=== PATIENT | male | born 1960 | race Caucasian/White ===

== ENCOUNTER 2019-10-19 19:50 | Emergency (ER) | payer OTHER, SELFPAY ==
[2019-10-19 20:00] VITALS: BP 117/76; PULSE 91; RESP 18; TEMP 36.7; O2SAT 96; BMI 31.9
[2019-10-19] MEDS: BACITRACIN OINT 0.9 GM PCKT 1 APPLIC TOP (20:10)
[2019-10-19] MEDS: LIDOCAINE 2% W/EPI INJ 20 ML INJ (20:10)
--- NOTE | 2019-10-19 20:25 | ED_ITS ---
HPI - Animal Bite <SHEA Wolf - Last Filed: 10/19/19 20:48> General Chief Complaint: Animal Bite Stated Complaint: dog bite on his lip Time Seen by Provider: 10/19/19 19:55 Source: patient Mode of arrival: Ambulatory Limitations: no limitations History of Present Illness HPI narrative: 58-year-old male presents emergency department complaining of a dog bite to his face. [place] bit him in the face. He complains of a laceration to the left side of his lip. Patient states his last Tdap was 2 years ago. He declined rabies vaccinations at this time, dog has a known rabies vaccination status. Patient denies any numbness, tingling, eye injury, difficulty swallowing, difficulty speaking, fevers, chills, dizziness, nausea, vomiting, diarrhea, or other injuries. Related Data Previous Rx's Medication Instructions Recorded amoxicillin-pot clavulanate 1 tab PO BID 10 Days #20 tab 10/19/19 [Augmentin] Allergies Allergy/AdvReac Type Severity Reaction Status Date / Time No Known Drug Allergies Allergy Verified 10/19/19 20:07 Review of Systems <SHEA Wolf - Last Filed: 10/19/19 20:48> Review of Systems Narrative: REVIEW OF SYSTEMS: GENERAL: Denies fever or chills. HENT: Denies hitting head. EYE: Denies double vision or vision loss. CARDIOVASCULAR: Denies syncope. MUSCULOSKELETAL: Denies weakness, or deformities. INTEGUMENTARY: Complains of left-sided lip laceration, see HPI. NEURO: Denies numbness or tingling. Patient History <SHAE Wolf - Last Filed: 10/19/19 20:48> Medical History No significant medical problems (Acute) Social History Smoking Status: Current every day smoker Smoking Status: Current every day smoker alcohol intake frequency: a few times a week Substance Use Type: does not use Exam <SHEA Wolf - Last Filed: 10/19/19 20:48> Initial Vital Signs Initial Vital Signs: Vital Signs Temperature 98.1 F 10/19/19 20:00 Pulse Rate 91 H 10/19/19 20:00 Respiratory Rate 18 10/19/19 20:00 Blood Pressure 117/76 10/19/19 20:00 Pulse Oximetry 96 10/19/19 20:00 PHYSICAL EXAMINATION: GENERAL: Well groomed, alert, and cooperative. Answers questions promptly and appropriately. Vital signs noted. HENT: Normocephalic, atraumatic. RESPIRATORY: Normal respiratory rate, trachea midline, airway patent. No stridor, nasal flaring or accessory muscle use. MUSCULOSKELETAL: Normal gait and coordination. Equal tone and mass bilaterally. EXTREMITIES: CMS intact. Moves all extremities. SKIN: Warm, dry, soft, appropriate color for ethnicity. A 5 cm vertical laceration noted left side of upper lip, laceration goes directly through the vermilion border. Laceration is a single layer, does not extend buccal aspect of lip. Wound was irrigated extensively with normal saline, sutures applied, vermilion border edges were precisely approximated, bacitracin applied post sutures. Multiple superficial scratches noted to upper lip around no and on right-sided cheek, the superficial lacerations not suturable. NEURO: Alert and Oriented X 3. Good coordination. PSYCH: Appropriate affect and mood. <Dewayne Sandoval DO - Last Filed: 10/19/19 22:27> Initial Vital Signs Initial Vital Signs: Vital Signs Temperature 98.1 F 10/19/19 20:00 Pulse Rate 91 H 10/19/19 20:00 Respiratory Rate 18 10/19/19 20:00 Blood Pressure 117/76 10/19/19 20:00 Pulse Oximetry 96 10/19/19 20:00 Procedures <SHEA Wolf - Last Filed: 10/19/19 20:48> Laceration Repair Laceration 1: Site: lip Size (cm): 5 Description: linear Depth: simple, single layer Local Anesthetic: lidocaine 2% and with epi Amount of anesthesia used (mL): 3 Pre-repair: wound explored and irrigated extensively Skin layer closed with: other (Gut) Size (cm): 5-0 Number of sutures: 5 Course <SHEA Wolf - Last Filed: 10/19/19 20:48> Orders Ordered: Discontinued Medications Amoxicillin/Clavulanate Potassium (Augmentin 875-125 Mg) 1 tab PO NOW ONE Stop: 10/19/19 20:25 Last Admin: 10/19/19 20:30 Dose: Not Given Documented by: ADEEL Bacitracin (Bacitracin) 1 applic TOP NOW ONE Stop: 10/19/19 20:01 Last Admin: 10/19/19 20:10 Dose: 1 applic Documented by: ADEEL Diphtheria/Tetanus/Acell Pertussis (Adacel) 0.5 ml IM .ONCE ONE Stop: 10/19/19 20:07 Last Admin: 10/19/19 20:11 Dose: Not Given Documented by: ADEEL Lidocaine/Epinephrine (Xylocaine 2% W/Epi) 20 ml INJ INTRA-OP ONE Stop: 10/19/19 20:00 Last Admin: 10/19/19 20:10 Dose: 20 ml Documented by: ADEEL Vital Signs Vital signs: Vital Signs - 8 hr 10/19/19 20:00 10/19/19 20:29 Temperature 98.1 F Pulse Rate 91 H 88 Respiratory Rate 18 Blood Pressure 117/76 107/80 Pulse Oximetry 96 97 <Dewayne Sandoval, - Last Filed: 10/19/19 22:27> Orders Ordered: Discontinued Medications Amoxicillin/Clavulanate Potassium (Augmentin 875-125 Mg) 1 tab PO NOW ONE Stop: 10/19/19 20:25 Last Admin: 10/19/19 20:30 Dose: Not Given Documented by: ADEEL Bacitracin (Bacitracin) 1 applic TOP NOW ONE Stop: 10/19/19 20:01 Last Admin: 10/19/19 20:10 Dose: 1 applic Documented by: ADEEL Diphtheria/Tetanus/Acell Pertussis (Adacel) 0.5 ml IM .ONCE ONE Stop: 10/19/19 20:07 Last Admin: 10/19/19 20:11 Dose: Not Given Documented by: ADEEL Lidocaine/Epinephrine (Xylocaine 2% W/Epi) 20 ml INJ INTRA-OP ONE Stop: 10/19/19 20:00 Last Admin: 10/19/19 20:10 Dose: 20 ml Documented by: ADEEL Vital Signs Vital signs: Vital Signs - 8 hr 10/19/19 20:00 10/19/19 20:29 Temperature 98.1 F Pulse Rate 91 H 88 Respiratory Rate 18 Blood Pressure 117/76 107/80 Pulse Oximetry 96 97 MDM - Animal Bite <SHEA Wolf - Last Filed: 10/19/19 20:48> Medical Records Attestation: I reviewed the patient's medical records. Lab Data Attestation: I reviewed the patient's lab results. [facility] Narrative Medical decision making narrative: 58-year-old male presents emergency department after a dog bite to the face. Patient states his Tdap is up-to-date, he declines rabies vaccinations. Observable sutures were placed in lip wound post irrigation, patient tolerated procedure well. Bacitracin was applied. Patient was started on Augmentin as this is a wound from a dog bite that required sutures. Patient was educated extensively about signs of infection when to return. Patient agreed to plan of care verbalized understanding. Discharge Plan Departure Patient Disposition: Home Clinical Impression: Dog bite Qualifiers: Encounter type: initial encounter Qualified Code(s): W54.0XXA - Bitten by dog, initial encounter Discharge Date/Time: 10/19/19 20:31 Instructions: DI for Dog Bite Activity Restrictions/Additional Instructions: Thank you for entrusting me with your care today. As discussed, I have placed 5 sutures in your lip. These will dissolve on their own. Try not to like the suture wound over the next 24 hours. You may apply bacitracin or Neosporin to this daily. I prescribed you antibiotics, please take these as prescribed to prevent infection. Return emergency department for any new or worsening symptoms such as pus, redness, severe pain, or any other concerns. Prescriptions: New amoxicillin-pot clavulanate [Augmentin] 875-125 mg tablet 1 tab PO BID 10 Days Qty: 20 RF: 0 <Dewayne Sandoval DO - Last Filed: 10/19/19 22:27> Cosign ED Attending Cosignature Attestation: I was immediately available in the department for consultation. This documentation has been reviewed and I agree with assessment and plan. Supervised by Dewayne Sandoval DO
[2019-10-19 20:29] VITALS: BP 107/80; PULSE 88; O2SAT 97
== END 2019-10-19 20:31 | disposition home or self-care (01) ==
PROVIDERS: Emergency Provider Nurse Practitioner
DX: S01.551A Open bite of lip, initial encounter (principal); W54.0XXA Bitten by dog, initial encounter
CPT/HCPCS: 12013; 99283